=== PATIENT | female | born 1955 | race Caucasian/White ===

== ENCOUNTER 2018-05-24 09:06 | Emergency (ER) | payer MEDICARE, MEDICAID ==
[~2018-05-24] VITALS: Ht 152.4 cm; Wt 73.0 kg
[2018-05-24 09:52] VITALS: BP 99/58
== END 2018-05-24 16:39 | disposition home or self-care (01) ==
LOC: ER 09:06
DX: J31.0 Chronic rhinitis (principal); R09.81 Nasal congestion; E11.9 Type 2 diabetes mellitus without complications; I10 Essential (primary) hypertension; Z88.2 Allergy status to sulfonamides; Z88.1 Allergy status to other antibiotic agents
CPT/HCPCS: 99283

== ENCOUNTER → 2018-11-15 | Outpatient (CLI) | payer MEDICARE, MEDICAID | END | disposition home or self-care (01) | LOC: CT 09:25 | DX: R51 Headache (principal); J44.9 Chronic obstructive pulmonary disease, unspecified; B69.0 Cysticercosis of central nervous system; I10 Essential (primary) hypertension; E66.9 Obesity, unspecified; E11.9 Type 2 diabetes mellitus without complications; F32.9 Major depressive disorder, single episode, unspecified; R42 Dizziness and giddiness; R06.02 Shortness of breath ==